=== PATIENT | male | born 1985 | race Two or more races ===

== ENCOUNTER 2019-12-08 18:27 | Emergency (ER) | payer BC ==
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
[2019-12-08] MEDS ORDERED: Sodium Chloride 0.9% 10 ML Syringe FLUSH PRN (19:14)
[2019-12-08] MEDS ORDERED: Sodium Chloride 0.9% 2.5 ML Syringe FLUSH PRN (19:14)
[2019-12-08 20:01] LABS: BLOOD UREA NITROGEN,BUN 22 mg/dL (7.0-18.0); CARBON DIOXIDE,CO2 27.9 mmol/L (21.0-32.0); CHLORIDE,CL 103 mmol/L (98-107); GLUCOSE RANDOM 103 mg/dL (74-106); POTASSIUM,K 3.7 mmol/L (3.5-5.1); SODIUM,NA 141 mmol/L (136-148)
[2019-12-08] MEDS ORDERED: Iopamidol 755 Mg/ML 100 ML Bottle IVPUSH STA (20:19)
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
[2019-12-08] MEDS ORDERED: cefTRIAXone 1 GM in Premix Bag 1 BAG IV ONE (20:45)
[2019-12-08] MEDS ORDERED: methylPREDNISolone Sodium Succinate 125 MG/2 ML SDV IVPUSH ONE (20:46)
[2019-12-08] MEDS ORDERED: Ketorolac 30 MG/ML SDV IVPUSH ONE (21:48)
== END 2019-12-08 22:13 | disposition home or self-care (01) ==
LOC: MW.ED 18:27
DX: J03.90 Acute tonsillitis, unspecified (principal); I10 Essential (primary) hypertension; Z79.899 Other long term (current) drug therapy
CPT/HCPCS: 36415; 70491; 80053; 85025; 87081; 87880; 96365; 96375; 99284; J0696; J1885; J2930; Q9967; 99283

== ENCOUNTER 2021-09-30 10:04 | Day surgery (SDC) | payer BC ==
[2021-09-30] MEDS ORDERED: Lactated Ringers 1,000 ML IV SCH (10:45)
--- NOTE | 2021-09-30 10:58 | PCM.PREANE ---
Preanesthetic Assessment - Procedure Proposed Procedure: EGD - Anesthesia/Transfusion/Family Hx Anesthesia History: No Prior Anesthesia Family History of Anesthesia Reaction: No Transfusion History: No Prior Transfusion(s) - Review of Systems General: No Symptoms Pulmonary: No Symptoms (Smoked 1-2 cigs/day, states he quit x6 days) Cardiovascular: No Symptoms (HTN) Gastrointestinal: No Symptoms (GERD- diet controlled) Neurological: No Symptoms Other: Reports: None - Physical Assessment NPO Status Date: 09/29/21 NPO Status Time: 20:00 Vital Signs: Last Vital Signs Temp 97.3 F 09/30/21 10:17 Pulse 78 09/30/21 10:17 Resp 16 09/30/21 10:17 BP 169/92 H 09/30/21 10:17 Pulse Ox 98 09/30/21 10:17 Height: 5 ft 6 in Weight: 96.615 kg ASA Class: 2 Mental Status: Alert & Oriented x3 Airway Class: Mallampati = 2 Dentition: Reports: Normal Dentition Thyro-Mental Finger Breadths: 3 Mouth Opening Finger Breadths: 3 ROM/Head Extension: Full Lungs: Clear to Auscultation, Normal Respiratory Effort Cardiovascular: Regular Rate, Regular Rhythm - Allergies Allergies/Adverse Reactions: Allergies Allergy/AdvReac Type Severity Reaction Status Date / Time No Known Allergies Allergy Verified 09/24/21 12:22 - Acknowledgements Anesthesia Type Planned: General Anesthesia Pt an Appropriate Candidate for the Planned Anesthesia: Yes Alternatives and Risks of Anesthesia Discussed w Pt/Guardian: Yes Pt/Guardian Understands and Agrees with Anesthesia Plan: Yes PreAnesthesia Questionnaire - Past Health History Medical/Surgical History: Denies Medical/Surgical History HEENT History: Reports: None Cardiovascular History: Reports: Hypertension Respiratory History: Reports: None Gastrointestinal History: Reports: GERD, Hiatal Hernia, Other (See Below) Genitourinary History: Reports: None Musculoskeletal History: Reports: Fracture Other Musculoskeletal History: hx of fx right leg- denies hardware Neurological History: Reports: None Psychiatric History: Reports: None Endocrine/Metabolic History: Reports: Obesity/BMI 30+ Hematologic History: Reports: Anemia Immunologic History: Reports: None Oncologic (Cancer) History: Reports: None Dermatologic History: Reports: None - Past Surgical History Head Surgeries/Procedures: Reports: None HEENT Surgical History: Reports: None Cardiovascular Surgical History: Reports: None Respiratory Surgical History: Reports: None Other GI Surgeries/Procedures: current abdominal pain Male Surgical History: Reports: None Endocrine Surgical History: Reports: None Neurological Surgical History: Reports: None Oncologic Surgical History: Reports: None - SUBSTANCE USE Tobacco Use Status *Q: Current Every Day Tobacco User Tobacco Use Within Last Twelve Months: Cigarettes Recreational Drug Use History: No - HOME MEDS Home Medications: Home Meds amLODIPine Besylate [Amlodipine Besylate] 5 mg PO QAM 12/08/19 [History] Famotidine [Pepcid AC] 20 mg PO DAILY 09/24/21 [History] Ferrous Sulfate [Iron] 325 mg PO DAILY 09/24/21 [History] Losartan Potassium 50 mg PO QAM 09/24/21 [History] Omeprazole 20 mg PO DAILY 09/24/21 [History] - CURRENT (IN HOUSE) MEDS Current Meds: Current Medications Lactated Ringer's (Ringers, Lactated) 1,000 mls @ 125 mls/hr IV ASDIRECTED [facility] Last Admin: 09/30/21 10:35 Dose: 125 mls/hr Documented by:
[2021-09-30] MEDS ORDERED: fentaNYL 100 MCG/2 ML SDV ONE (11:36)
[2021-09-30] MEDS ORDERED: Propofol 200 MG/20 ML SDV ONE (11:36)
[2021-09-30] MEDS ORDERED: Lidocaine 2% 100 MG/5 ML Syringe ONE (11:36)
--- NOTE | 2021-09-30 13:33 | PCM.OPNOTE ---
- General Post-Op/Procedure Note Date of Surgery/Procedure: 09/30/21 Operative Procedure(s): EGD with polypectomy and bipsies Findings: Hiatal hernia Irregular GE junction gastric polyps dictation number [id number] Pre Op Diagnosis: GERD Post-Op Diagnosis: Hiatal hernia. Irregular GE junction. gastric polyps Anesthesia Technique: Moderate Sedation Primary Surgeon: Jonh Morales Complications: None Condition: Good
--- NOTE | 2021-09-30 13:35 | PCM.POSTAN ---
POST ANESTHESIA ASSESSMENT - MENTAL STATUS Mental Status: Alert, Oriented - VITAL SIGNS Vital Signs: Last Vital Signs Temp 36.7 C 09/30/21 13:26 Pulse 88 09/30/21 13:32 Resp 23 H 09/30/21 13:32 BP 122/71 09/30/21 13:32 Pulse Ox 94 L 09/30/21 13:32 - RESPIRATORY Respiratory Status: Respiratory Rate WNL, Airway Patent, O2 Saturation Stable - CARDIOVASCULAR CV Status: Pulse Rate WNL, Blood Pressure Stable - GASTROINTESTINAL GI Status: No Symptoms - POST OP HYDRATION Hydration Status: Adequate & Stable
--- NOTE | 2021-09-30 13:46 | PCM48HPAN ---
Post Anesthesia Note - EVALUATION WITHIN 48HRS OF ANESTHETIC Vital Signs in Normal Range: Yes Patient Participated in Evaluation: Yes Respiratory Function Stable: Yes Airway Patent: Yes Cardiovascular Function Stable: Yes Hydration Status Stable: Yes Pain Control Satisfactory: Yes Nausea and Vomiting Control Satisfactory: Yes Mental Status Recovered: Yes Vital Signs: Last Vital Signs Temp 36.7 C 09/30/21 13:26 Pulse 77 09/30/21 13:37 Resp 21 H 09/30/21 13:37 BP 111/67 09/30/21 13:37 Pulse Ox 93 L 09/30/21 13:37 - COMMENTS/OBSERVATIONS Free Text/Narrative:: final pulse ox reading before leaving PACU 97%
--- NOTE | 2021-09-30 22:49 | OR ---
SURGEON: ELIZABETH CASE MD DATE OF PROCEDURE: 09/30/2021 PREOPERATIVE DIAGNOSIS: Gastroesophageal reflux disease. POSTOPERATIVE DIAGNOSES: 1. Hiatal hernia. 2. Irregular gastroesophageal junction. 3. Gastric polyps. PROCEDURES PERFORMED: Esophagogastroduodenoscopy with biopsies and gastric polypectomies. PRIMARY SURGEON: Elizabeth Case MD. ANESTHESIA: With Anesthesiology. EXTENT OF EGD: To the duodenum. LIMITATIONS: None. REASON FOR PROCEDURE: Patient is a pleasant 36-year-old gentleman who says he has had heartburn for the past 3 years. He says he has taken antacids in the past which seemed to have resolved it; however, he stopped couple of months ago and the pain came back. He had some issues with nausea and coughing up some phlegm, which may or might have little bit of blood tinge to it. He did have a CT scan which showed small to moderate sized hiatal hernia. The patient has restarted on his antacids. Since restarted on antacids, all the pain and discomfort have gone away. PROCEDURE IN DETAIL: Physical examination was performed. The major risks and benefits associated with the procedure were explained to the patient again in detail. The patient verbalized understanding and agreement with the same. The patient was then connected to appropriate monitoring device and IV started. EKG, pulse, pulse oximetry, blood pressure, and capnography were monitored throughout the entire procedure. Continuous oxygen and sedation were provided by the anesthesiologist. After sedation was begun, an upper endoscope was advanced under direct visualization without difficulty in the upper GI tract. The anatomy and mucosa of the esophagus, GE junction, stomach, pylorus, and duodenum were all inspected. Duodenum appeared normal. Scope was brought back to the stomach. Both retrograde and antegrade views of stomach were done. He had some maybe slight gastritis but not very much really. Biopsies done of the antrum and pylorus area to check for H pylori. In the body of the stomach, the patient did have couple of gastric polyps, 2 of the larger ones were removed. Scope was brought to the GE junction. He did have a hiatal hernia. His GE junction was approximately 32 cm from his incisor. It was slightly irregular. It looks like probably healed esophagitis in the past. I did do 4-quadrant biopsies of the GE junction. Scope was brought to the stomach. Stomach was deinsufflated. Scope was brought through the GE junction. Again, there was good hemostasis. Scope was brought to the esophagus. Esophagus appeared normal. Scope was completely removed and the procedure was terminated. ENDOSCOPIC DIAGNOSES: 1. Hiatal hernia. 2. Gastric polyps. 3. Irregular GE junction. RECOMMENDATION: Patient should continue his antacid. The patient is to follow up in clinic to go over the pathology. SAGAR / JAZ /[id number]
== END 2021-09-30 14:02 | disposition home or self-care (01) ==
LOC: MW.SDS 10:04
PROVIDERS: ATTEND Surgery
DX: K21.00 Gastro-esophageal reflux disease with esophagitis, without bleeding (principal); K44.9 Diaphragmatic hernia without obstruction or gangrene; K31.7 Polyp of stomach and duodenum; K22.89 Other specified disease of esophagus; K31.89 Other diseases of stomach and duodenum; I10 Essential (primary) hypertension; F17.210 Nicotine dependence, cigarettes, uncomplicated; D64.9 Anemia, unspecified; Z79.899 Other long term (current) drug therapy
CPT/HCPCS: 43239; J2704; J3010; J7120; 00731